=== PATIENT | male | born 1950 | race Asian ===

== ENCOUNTER 2017-05-30 07:51 | Emergency (ER) | payer OTHER ==
[~2017-05-30] VITALS: Ht 172.7 cm; Wt 85.0 kg
[~2017-05-30 07:51] MED LIST: ALLO100 PO; CARV6.25 PO; DIOV160T6 PO; FISH500C PO; HYDR-2768 PO; HYDR-3133 PO; PRED10PA PO; RANI150 PO; SIMV20 PO
[2017-05-30 07:59] VITALS: BP 185/102; PULSE 60; RESP 15; TEMP 97.7; O2SAT 95
[2017-05-30 08:42] VITALS: RESP 17; O2SAT 98
[2017-05-30] MEDS: SODIUM CHLORIDE 0.9% FLUSH 10 ML FLUSH IVF PRN ×2 (08:45→11:15)
[2017-05-30] MEDS ORDERED: MECLIZINE HCL 25 MG TAB PO ONE ×2 (08:45→11:15)
[2017-05-30] MEDS ORDERED: ALLO100T PO (08:53)
[2017-05-30] MEDS ORDERED: ASPI81CH (08:53)
[2017-05-30] MEDS ORDERED: CARV6.25 PO (08:53)
[2017-05-30] MEDS ORDERED: ZOCO20TA PO (08:53)
[2017-05-30] MEDS ORDERED: TERA5CAP3 PO (08:53)
[2017-05-30] MEDS ORDERED: METO50TA PO (08:53)
[2017-05-30] MEDS ORDERED: ISOS30TA3 PO (08:53)
[2017-05-30] MEDS ORDERED: CARVEDILOL 6.25 MG TAB PO ONE (09:00)
--- NOTE | 2017-05-30 09:03 | RADRPT ---
EXAM DATE/TIME: 05/30/2017 08:39 [facility] COMPARISON: CHEST PA & LAT, September 17, 2009, 12:30. INDICATIONS : Syncopal episode. Heart palpitations. MEDICAL HISTORY : Hypercholesterolemia. Hypertension TIA. Gout. Diabetic. SURGICAL HISTORY : None. ENCOUNTER: Initial ACUITY: 1 day PAIN SCORE: 0/10 LOCATION: chest FINDINGS: Portable AP view of the chest demonstrates a normal-sized cardiac silhouette with calcification of th e aorta. Lungs are underinflated with mild atelectasis at the lung bases. EKG lines overlie the patie nt. No effusion or pneumothorax is identified. The bones and soft tissues demonstrate no acute findin g. CONCLUSION: Underinflated examination with atelectasis at the lung bases. Otherwise, no acute cardiopulmonary abn ormality is identified. Aron Camargo MD on May 30, 2017 at 9:00 Board Certified Radiologist. This report was verified electronically.
[2017-05-30 09:09] VITALS: BP 148/89; PULSE 62; RESP 17; O2SAT 98
--- NOTE | 2017-05-30 09:25 | RADRPT ---
EXAM DATE/TIME: 05/30/2017 09:15 [facility] COMPARISON: No previous studies available for comparison. INDICATIONS : Vertigo and elevated blood pressure RADIATION DOSE: 35.49 CTDIvol (mGy) MEDICAL HISTORY : Hypertension. Diabetes mellitus type 2. SURGICAL HISTORY : None. ENCOUNTER: Initial ACUITY: 1 day PAIN SCALE: 0/10 LOCATION: cranial TECHNIQUE: Multiple contiguous axial images were obtained of the head. Using automated exposure control and adj ustment of the mA and/or kV according to patient size, radiation dose was kept as low as reasonably a chievable to obtain optimal diagnostic quality images. DICOM format image data is available electro nically for review and comparison. FINDINGS: CEREBRUM: Areas of low-attenuation are seen throughout the white matter. The ventricles are normal for age. No evidence of midline shift, mass lesion, hemorrhage or acute infarction. No extra-axial fluid collec tions are seen. POSTERIOR FOSSA: The cerebellum and brainstem are intact. The 4th ventricle is midline. The cerebellopontine angle i s unremarkable. EXTRACRANIAL: The visualized portion of the orbits is intact. SKULL: The calvaria is intact. No evidence of skull fracture. CONCLUSION: Nonspecific white matter changes. No acute intracranial abnormality. Augie Freire MD on May 30, 2017 at 9:23 Board Certified Radiologist. This report was verified electronically.
[2017-05-30 09:29] LABS: AUTOMATED NEUTROPHIL # 6.5 TH/MM3 (1.8-7.7); BASOPHIL # 0.1 TH/MM3 (0-0.2); BASOPHIL % 0.6 % (0.0-2.0); EOSINOPHIL # 0.2 TH/MM3 (0-0.4); HEMATOCRIT 44.7 % (39.0-51.0); HEMO FLAGS DIFF FINAL; LYMPH % 19.8 % (9.0-44.0); LYMPHOCYTE # 1.7 TH/MM3 (1.0-4.8); MEAN CELL VOLUME 90.2 FL (80.0-100.0); MEAN CORPUSCULAR HEMOGLOBIN 30.8 PG (27.0-34.0); MEAN CORPUSCULAR HGB CONC 34.1 % (32.0-36.0); MONO % 3.9 % (0.0-8.0); NEUT % 73.7 % (16.0-70.0); PLATELET COUNT 231 TH/MM3 (150-450); RED BLOOD COUNT 4.96 MIL/MM3 (4.50-5.90); RED CELL DISTRIBUTION WIDTH 13.2 % (11.6-17.2); WHITE BLOOD COUNT 8.8 TH/MM3 (4.0-11.0)
[2017-05-30 09:39] LABS: APTT (PATIENT) 26.9 SEC (24.3-30.1); PROTHROMBIN TIME - PATIENT 10.6 SEC (9.8-11.6)
[2017-05-30 09:50] LABS: ANION GAP 8 MEQ/L (5-15); AST (GOT) 18 U/L (15-37); BICARBONATE 23.4 MEQ/L (21.0-32.0); BLOOD UREA NITROGEN 15 MG/DL (7-18); CHLORIDE 106 MEQ/L (98-107); GLOMERULAR FILTRATION RATE 77 ML/MIN (>89); POTASSIUM 4.1 MEQ/L (3.5-5.1); SODIUM (NA) 137 MEQ/L (136-145)
[2017-05-30 09:51] LABS: ALT (GPT) 43 U/L (12-78)
[2017-05-30 09:55] LABS: ALKALINE PHOSPHATASE 51 U/L (45-117); CREATINE KINASE 224 U/L (39-308); TOTAL BILIRUBIN ADULT 0.6 MG/DL (0.2-1.0)
[2017-05-30] MEDS ORDERED: METOCLOPRAMIDE INJ 10 MG in SODIUM CHLORIDE 0.9% INJ 50 ML IV ONE (10:00)
[2017-05-30 10:22] VITALS: BP 145/88; PULSE 66; RESP 17; TEMP 97.8; O2SAT 98
[2017-05-30] MEDS ORDERED: diphenhydrAMINE HCL 50 MG/ML VIAL IV PUSH ONE (11:15)
[2017-05-30 12:30] VITALS: BP 115/74; PULSE 63; RESP 17; TEMP 97.8; O2SAT 97
[2017-05-30] MEDS ORDERED: MECL-62 PO (13:11)
--- NOTE | 2017-05-30 13:11 | PD ---
HPI Chief Complaint: Hypertension Time Seen by Provider: 08:25 Travel History International Travel<30 days: No Contact w/Intl Traveler<30days: No Traveled to known affect area: No History of Present Illness HPI Patient is a 67-year-old male comes in complaining of dizziness and high blood pressure. He says it feels like vertigo. He has had vertigo once in the past, he says this is better than his previous episode. He says he was concerned because he took his blood pressure was high. He says he has slight pressure in his head. He denies any blurred vision. He has had some nausea. He denies fever or chills. He has taken his blood pressure medication today except for his carvedilol. He denies any chest pain or shortness of breath. PFSH Past Medical History Heart Rhythm Problems: No Cardiac Catheterization: No Cardiovascular Problems: Yes High Cholesterol: Yes Congestive Heart Failure: No Cerebrovascular Accident: Yes (tia) Diabetes: Yes Patient Takes Glucophage: No Gout: Yes Hypertension: Yes Medical other: Yes (syncopal) Neurologic: Yes (HYPOGLYCEMIA) Myocardial Infarction: No Influenza Vaccination: No Past Surgical History Coronary Artery Bypass Graft: No Family History Family Myocardial Infarction: Yes Social History Alcohol Use: Yes (socially) Tobacco Use: No Substance Use: No Allergies-Medications (Allergen,Severity, Reaction): Coded Allergies: No Known Allergies (Verified , 05/30/17) Reported Meds & Prescriptions Reported Meds & Active Scripts Active Reported Coreg (Carvedilol) 6.25 Mg Tab 6.25 Mg PO BID Allopurinol 100 Mg Tab 100 Mg PO DAILY Aspirin 81 Mg Chew 81 Mg ONCE Zocor (Simvastatin) 20 Mg Tab 20 Mg PO HS Isosorbide Mononitrate ER (Isosorbide Mononitrate) 30 Mg Sarah 30 Mg PO DAILY Terazosin (Terazosin HCl) 5 Mg Cap 5 Mg PO HS Review of Systems Except as stated in HPI: all other systems reviewed are Neg General / Constitutional: No: Fever, Chills Eyes: No: Blurred Vision HENT: Positive: Headaches, Vertigo Cardiovascular: No: Chest Pain or Discomfort Respiratory: No: Shortness of Breath Gastrointestinal: No: Nausea, Vomiting Genitourinary: No: Dysuria Musculoskeletal: No: Myalgias, Edema Skin: No Rash, No Change in Pigmentation Neurologic: Positive: Dizziness, No: Weakness, Syncope Physical Exam Narrative GENERAL: Awake and alert, in no acute distress. SKIN: Focused skin assessment warm/dry. HEAD: Atraumatic. Normocephalic. EYES: Pupils equal and round. No scleral icterus. EOMI, no nystagmus. ENT: Mucous membranes pink and moist. NECK: Trachea midline. No JVD. CARDIOVASCULAR: Regular rate and rhythm. No murmur appreciated. RESPIRATORY: No accessory muscle use. Clear to auscultation. Breath sounds equal bilaterally. GASTROINTESTINAL: Abdomen soft, non-tender, nondistended. MUSCULOSKELETAL: No obvious deformities. No clubbing. No cyanosis. No edema. NEUROLOGICAL: Awake and alert. No obvious cranial nerve deficits. Motor grossly within normal limits. Normal speech. Normal cerebellar function testing. PSYCHIATRIC: Appropriate mood and affect; insight and judgment normal. Data Data Last Documented VS Vital Signs Date Time Temp Pulse Resp B/P (MAP) Pulse Ox O2 Delivery O2 Flow Rate FiO2 05/30/17 10:22 97.8 66 17 145/88 (107) 98 Room Air Orders Orders Electrocardiogram (05/30/17 08:37) Complete Blood Count With Diff (05/30/17 08:37) Comprehensive Metabolic Panel (05/30/17 08:37) Ckmb (Isoenzyme) Profile (05/30/17 08:37) Troponin I (05/30/17 08:37) Act Partial Throm Time (Ptt) (05/30/17 08:37) Prothrombin Time / Inr (Pt) (05/30/17 08:37) Chest, Single Ap (05/30/17 08:37) Ct Brain W/O Iv Contrast(Rout) (05/30/17 08:37) Ecg Monitoring (05/30/17 08:37) Iv Access Insert/Monitor (05/30/17 08:37) Oximetry (05/30/17 08:37) Meclizine (Antivert) (05/30/17 08:45) Sodium Chloride 0.9% Flush (Ns Flush) (05/30/17 08:45) Carvedilol (Coreg) (05/30/17 09:00) Metoclopramide Inj (Reglan Inj) (05/30/17 10:00) CKMB (05/30/17 08:41) CKMB% (05/30/17 08:41) Diphenhydramine Inj (Benadryl Inj) (05/30/17 11:15) Meclizine (Antivert) (05/30/17 11:15) Labs Laboratory Tests Test 05/30/17 08:41 White Blood Count 8.8 TH/MM3 Red Blood Count 4.96 MIL/MM3 Hemoglobin 15.3 GM/DL Hematocrit 44.7 % Mean Corpuscular Volume 90.2 FL Mean Corpuscular Hemoglobin 30.8 PG Mean Corpuscular Hemoglobin Concent 34.1 % Red Cell Distribution Width 13.2 % Platelet Count 231 TH/MM3 Mean Platelet Volume 7.6 FL Neutrophils (%) (Auto) 73.7 % Lymphocytes (%) (Auto) 19.8 % Monocytes (%) (Auto) 3.9 % Eosinophils (%) (Auto) 2.0 % Basophils (%) (Auto) 0.6 % Neutrophils # (Auto) 6.5 TH/MM3 Lymphocytes # (Auto) 1.7 TH/MM3 Monocytes # (Auto) 0.3 TH/MM3 Eosinophils # (Auto) 0.2 TH/MM3 Basophils # (Auto) 0.1 TH/MM3 CBC Comment DIFF FINAL Differential Comment Prothrombin Time 10.6 SEC Prothromb Time International Ratio 1.0 RATIO Activated Partial Thromboplast Time 26.9 SEC Blood Urea Nitrogen 15 MG/DL Creatinine 0.98 MG/DL Random Glucose 130 MG/DL Total Protein 7.8 GM/DL Albumin 3.9 GM/DL Calcium Level 9.0 MG/DL Alkaline Phosphatase 51 U/L Aspartate Amino Transf (AST/SGOT) 18 U/L Alanine Aminotransferase (ALT/SGPT) 43 U/L Total Bilirubin 0.6 MG/DL Sodium Level 137 MEQ/L Potassium Level 4.1 MEQ/L Chloride Level 106 MEQ/L Carbon Dioxide Level 23.4 MEQ/L Anion Gap 8 MEQ/L Estimat Glomerular Filtration Rate 77 ML/MIN Total Creatine Kinase 224 U/L Creatine Kinase MB 1.0 NG/ML Troponin I LESS THAN 0.02 NG/ML MDM Medical Decision Making Medical Screen Exam Complete: Yes Emergency Medical Condition: Yes Medical Record Reviewed: Yes Interpretation(s) ECG shows normal sinus rhythm at 60, no ST elevation or depression. There is T- wave flattening in aVL. Differential Diagnosis ACS versus vertigo versus migraine versus hypertensive urgency Narrative Course Patient is a 67 year old male who comes in complaining of dizziness and high blood pressure. Exam shows no neurologic abnormalities. IV established, labs sent. Patient connected to the radial saw operator. Labs show no acute abnormalities. CT head shows no acute abnormalities. Last [address] 05/30/17 0837 Signed Impressions: Service Date/Time: Tuesday, May 30, 2017 09:15 - CONCLUSION: Nonspecific white matter changes. No acute intracranial abnormality. Augie Freire MD Chest X-Ray 05/30/1737 Signed Impressions: Service Date/Time: Tuesday, May 30, 2017 08:39 - CONCLUSION: Underinflated examination with atelectasis at the lung bases. Otherwise, no acute cardiopulmonary abnormality is identified. Aron Camargo MD Patient given his blood pressure medicine. Given meclizine. He says he got dizzy again when he laid flat for the CT. He was given a dose of Reglan and Benadryl. He is offered an MRI of his brain, but declines at this time. He says he is feeling better and his symptoms are similar from his previous episode. He says he is feeling better when I to go home. He is advised follow-up with his primary care doctor. Advised to return to the ED as needed for any worsening symptoms. Diagnosis Primary Impression: Vertigo Patient Instructions: Benign Paroxysmal Positional Vertigo (ED), General Instructions Additional Instructions: Follow-up with your primary care doctor. Take meclizine as needed for dizziness. Return to the ED as needed for any worsening symptoms. Scripts Meclizine (Meclizine) 25 Mg Tab 25 MG PO TID Y for VERTIGO, #20 TAB 0 Refills Prov: Brenda Webster MD 05/30/17 Disposition: DISCHARGE HOME Condition: Stable Brenda Webster MD May 30, 2017 13:11
[2017-05-30 13:15] VITALS: BP 118/77; TEMP 97.8
--- NOTE | 2017-05-30 21:47 | EKG ---
Date Performed: 05/30/2017 Time Performed: 08:45:07 PTAGE: 67 years EKG: Sinus rhythm NORMAL ECG Compared to prior tracing no significant change DOCTOR: Beatris Paris Interpretating Date/Time 05/30/2017 21:46:20
== END 2017-05-30 13:15 | disposition home or self-care (01) ==
LOC: NEPE 07:51
DX: R42 Dizziness and giddiness (principal); E78.00 Pure hypercholesterolemia, unspecified; Z86.73 Personal history of transient ischemic attack (TIA), and cerebral infarction without residual deficits; E11.9 Type 2 diabetes mellitus without complications; M10.9 Gout, unspecified; I10 Essential (primary) hypertension
CPT/HCPCS: 70450; 71010; 80053; 82550; 82552; 84484; 85025; 85610; 85730; 93005; 96365; 96375; 99285; J1200; J2765